=== PATIENT | female | born 1980 | race Caucasian/White ===

== ENCOUNTER 2018-03-23 16:59 | Inpatient (IN) | END 2018-03-23 19:02 | disposition home or self-care (01) | DRG 552 ==

== ENCOUNTER 2018-04-23 04:15 | Emergency (ER) | END 2018-04-23 06:30 | disposition home or self-care (01) ==

== ENCOUNTER 2018-04-28 12:09 | Inpatient (IN) | END 2018-05-01 22:40 | disposition home or self-care (01) | DRG 459 ==